=== PATIENT | female | born 1980 | race African-American/Black ===

== ENCOUNTER → 2017-01-22 | Outpatient (CLI) | payer OTHER ==
--- NOTE | 2017-01-22 10:15 | REP ---
CT MAXILLOFACIAL WITHOUT CONTRAST: 01/22/2017 CLINICAL HISTORY: chronic pansinusitis. There are no prior pertinent studies. TECHNIQUE: Axial soft-tissue and bone windows with coronal bone reconstructions provided. FINDINGS: The nasal septum is generally midline and the maxillary sinuses are clear. The ostiomeatal complexes show patent ostia with a short infundibula. There is no contra bullosa of the middle turbinates. The hiatus semilunaris is intact. The sphenoid, ethmoid and frontal sinuses are clear. Bony orbits are intact. The optic nerves, extraocular muscles and globes are unremarkable. Visualized portions of the mandibular rami and condyles are intact as are the articulations with the condylar fossa at the skull base. Visualized portions of the upper cervical spine and skull base were unremarkable. Nasal bones intact. IMPRESSION: 1. Normal CT maxillofacial. There is no acute or chronic sinus disease evident at this time with no air-fluid levels, mucosal thickening, stenosis of the OMC, bony abnormality or other significant findings. Signed by Eduin Bertrand MD 01/22/2017 06:28 P
== END ==
LOC: M RAD 08:45
PROVIDERS: ATTEND Otolaryngology
DX: J32.4 Chronic pansinusitis (principal)

== ENCOUNTER 2017-02-16 03:25 | Emergency (ER) | payer OTHER ==
[~2017-02-16] VITALS: Ht 165.1 cm; Wt 90.7 kg
[2017-02-16] MEDS ORDERED: ZOMI2.5T4 PO (03:34)
[2017-02-16] MEDS ORDERED: CLAR10CA3 PO (03:34)
[2017-02-16] MEDS ORDERED: TRAZ50TA4 PO (03:34)
[2017-02-16] MEDS ORDERED: LUNE1TAB5 PO (03:34)
[2017-02-16] MEDS ORDERED: LEXA1TAB PO (03:34)
[2017-02-16] MEDS ORDERED: TESS100C PO (06:48)
[2017-02-16] MEDS ORDERED: LIDOCAINE VISCOUS 2% SOLN 15ML UDC SS ONE (07:00)
[2017-02-16] MEDS ORDERED: KETOROLAC 60 MG/2 ML VIAL (J1885) IM ONE (07:00)
[2017-02-16 07:01] VITALS: BP 138/74
== END 2017-02-16 07:04 | disposition home or self-care (01) ==
LOC: M ED 05:09
DX: J06.9 Acute upper respiratory infection, unspecified (principal); H92.03 Otalgia, bilateral; Z79.899 Other long term (current) drug therapy; Z88.5 Allergy status to narcotic agent; Z88.6 Allergy status to analgesic agent
CPT/HCPCS: 87804; 87880; 96372; 99283; J1885

== ENCOUNTER → 2017-03-13 | Day surgery (SDC) | payer OTHER ==
[~2017-03-13] VITALS: Ht 165.1 cm; Wt 90.7 kg
[~2017-03-13] MED LIST: CLAR10CA3 PO; FLON1SPR; FLOV50AE IN; GABA-283 PO; LEXA1TAB PO; LIDOCAINE 2% INJ 100 MG/5 ML SDV (FOR ANES.) As Ordered ONE; LORA-376 PO; LR 1,000 ML IV ONE; LR 1,000 ML IV SCH; LUNE1TAB5 PO; MAGN400C3 PO; MEPERIDINE INJ 25 MG/ML VIAL (J2175) IV PRN; METOCLOPRAMIDE INJ 10MG/2ML VIAL (J2765) IV PRN; MIDAZOLAM INJ 2 MG/2 ML VIAL (J2250) As Ordered ONE; NAPR500T2 PO; NEXI40CA PO; ONDANSETRON 4MG/2ML VIAL (J2405) IV PRN; PERCOCET 5MG/325MG TAB PO PRN; PROA1AER INH; PROPOFOL 200 MG/20 ML VIAL As Ordered ONE; RIBO100C PO; ROBA500T PO; ROCURONIUM BROMIDE 50 MG/5 ML VIAL As Ordered ONE; SUCCINYLCHOLINE 100 MG/5 ML SYRINGE (J0330) As Ordered ONE; TESS100C PO; TRAZ50TA4 PO; VITA100037 PO; ZOMI2.5T4 PO; ZONI100C2 PO; fentaNYL 100 MCG/2 ML INJECTION (J3010) As Ordered ONE; oxyCODONE 5MG TAB As Ordered ONE; oxyCODONE 5MG TAB PO PRN
[2017-03-13 07:27] LABS: CONTROL LINE UCG INT CTR LINE PRESENT
[2017-03-13] MEDS: fentaNYL 100 MCG/2 ML INJECTION (J3010) IV PRN ×3 (08:57→09:15)
[2017-03-13 11:00] VITALS: BP 107/54
--- NOTE | 2017-03-13 13:57 | RO ---
DATE OF PROCEDURE: 03/13/2017 PREOPERATIVE DIAGNOSIS: Lesion nasopharynx. POSTOPERATIVE DIAGNOSIS: Lesion nasopharynx. OPERATIVE PROCEDURE: Biopsy of lesion nasopharynx and cautery. SURGEON: Dr. Mani Chappell [employer] MACHINE OPERATOR: ANESTHESIA: Under general anesthesia with the patient intubated, Narvaez Omer mouth gag was inserted. A catheter was placed through the nose. There was a lesion in the nasopharynx which appeared to be adenoid tissue. I did a biopsy. I cauterized that tissue. The patient tolerated the procedure well and was transferred to the recovery room in excellent condition.
== END ==
LOC: M SDC 06:32
PROVIDERS: ATTEND Otolaryngology
DX: J39.2 Other diseases of pharynx (principal); Z87.09 Personal history of other diseases of the respiratory system; F41.9 Anxiety disorder, unspecified; F32.9 Major depressive disorder, single episode, unspecified; K21.9 Gastro-esophageal reflux disease without esophagitis; K58.9 Irritable bowel syndrome, unspecified; R06.83 Snoring; G43.909 Migraine, unspecified, not intractable, without status migrainosus; Z88.5 Allergy status to narcotic agent; Z88.8 Allergy status to other drugs, medicaments and biological substances; Z79.899 Other long term (current) drug therapy
CPT/HCPCS: 42804; 84703; 88305; J0330; J2250; J3010

== ENCOUNTER → 2017-06-18 | Outpatient (CLI) | payer OTHER ==
[~2017-06-18] MED LIST changes: -LIDOCAINE 2% INJ 100 MG/5 ML SDV (FOR ANES.) As Ordered ONE; -LORA-376 PO; +LORA0.5T11 PO; -LR 1,000 ML IV ONE; -LR 1,000 ML IV SCH; -MEPERIDINE INJ 25 MG/ML VIAL (J2175) IV PRN; +METHACHOLINE KIT (J7674) INH ONE; -METOCLOPRAMIDE INJ 10MG/2ML VIAL (J2765) IV PRN; -MIDAZOLAM INJ 2 MG/2 ML VIAL (J2250) As Ordered ONE; -NAPR500T2 PO; +NAPR500T3 PO; -ONDANSETRON 4MG/2ML VIAL (J2405) IV PRN; -PERCOCET 5MG/325MG TAB PO PRN; -PROA1AER INH; +PROAAER10 INH; -PROPOFOL 200 MG/20 ML VIAL As Ordered ONE; -ROCURONIUM BROMIDE 50 MG/5 ML VIAL As Ordered ONE; -SUCCINYLCHOLINE 100 MG/5 ML SYRINGE (J0330) As Ordered ONE; +TRAZ50TA11 PO; -TRAZ50TA4 PO; -VITA100037 PO; +VITA100067 PO; -fentaNYL 100 MCG/2 ML INJECTION (J3010) As Ordered ONE; -oxyCODONE 5MG TAB As Ordered ONE; -oxyCODONE 5MG TAB PO PRN
--- NOTE | 2017-06-18 11:21 | PFTRPT ---
Tech: Samantha NUNEZ RRT Age: 36 Sex: Female Race: Black Height: 64.50 Inches Weight: 220.00 Lbs BSA: 2.05 Diagnosis: R05 METHACHOLINE CHALLENGE REPORT: ORDERING PROVIDER: CLARITA Hercules DATE OF SERVICE: 06/18/17 INTERPRETATION: The study was of excellent technical quality. Under protocol, methacholine was administered. At a dose of 0.25 mg (1.375 CDUs), a 30% decline in the FEV1 was noted. The PC20 of 0.08 is significant. Flow rates returned to baseline post bronchodilator administration. IMPRESSION: Positive methacholine challenge study. MTDD
== END ==
LOC: M CARPUL 10:44
PROVIDERS: ATTEND Nurse Practitioner Adult Health
DX: R05 Cough (principal)
CPT/HCPCS: 94070; J7674